=== PATIENT | male | born 1995 | race Caucasian/White ===

== ENCOUNTER 2018-09-12 13:58 | Emergency (ER) | payer OTHER, SELFPAY ==
[2018-09-12 13:58] VITALS: BP 144/101; PULSE 111; RESP 18; TEMP 36.7; O2SAT 99
--- NOTE | 2018-09-12 13:59 | PC.NURSE ---
JAI MOREJON at
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
--- NOTE | 2018-09-12 14:05 | PC.NURSE ---
rad at for portable xrays
[2018-09-12 14:06] VITALS: BMI 29.3
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
[2018-09-12 14:46] VITALS: BP 121/85; PULSE 100; O2SAT 98
[2018-09-12 15:05] VITALS: BP 156/84; PULSE 98; RESP 20; O2SAT 99
[2018-09-12 15:30] LABS: POC Glucose,Bedside 117 (70-110)
[2018-09-12 15:40] VITALS: BP 135/85; PULSE 92; O2SAT 96
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
[2018-09-12 16:07] VITALS: BP 135/85; PULSE 99; RESP 18; TEMP 37.2; O2SAT 99
== END 2018-09-12 16:08 | disposition home or self-care (01) ==
PROVIDERS: Emergency Provider Emergency Medicine; PCP Family Medicine
DX: Z04.1 Encounter for examination and observation following transport accident (principal); V43.52XA Car driver injured in collision with other type car in traffic accident, initial encounter; Y92.488 Other paved roadways as the place of occurrence of the external cause
CPT/HCPCS: 71045; 72170; 82962; 99281

== ENCOUNTER → 2019-09-30 12:28 | Outpatient (CLI) | payer BC, SELFPAY ==
[2019-10-01 13:30] LABS: Covid-19 Nasal PCR Sendout Lex NOT DETECTED
== END ==
PROVIDERS: PCP Family Medicine; Visit Provider Family Medicine
DX: Z03.818 Encounter for observation for suspected exposure to other biological agents ruled out (principal)
CPT/HCPCS: U0004

== ENCOUNTER 2021-03-31 12:28 | Emergency (ER) | payer BC, SELFPAY ==
[2021-03-31 12:58] VITALS: BP 141/97; PULSE 79; RESP 18; TEMP 37.1; O2SAT 97; BMI 29.1
--- NOTE | 2021-03-31 13:06 | HMH.EDUTC ---
[facility] [place] Clinical Impression: Finger laceration Qualifiers: Encounter type: initial encounter Finger: ring finger Damage to nail status: without damage Foreign body presence: without foreign body Laterality: right Qualified Code(s): S61.214A - Laceration without foreign body of right ring finger without damage to nail, initial encounter Disposition: Home, Self-Care Condition on Discharge: Good Instructions: DI for Laceration Repair-Skin Glue Additional Instructions: Keep area clean and dry and allow dermabond to wear off Do not soak hand in water Watch for signs of infection including but not limited too swelling, redness, drainage etc Return if needed Straight to ER if any life threatening symptoms Referrals: Taco Wilson [Primary Care Provider] - As needed Time of Disposition: 13:24 Medical Decision Making - Satnam Inquiry Pt receiving controlled substance: No Satnam was queried for this patient: No Vital Signs: 03/31/21 12:58 Temperature 98.7 F Temperature Source Oral Pulse Rate [Left] 79 Respiratory Rate 18 Blood Pressure [Right Arm] 141/97 H Blood Pressure Mean [Right Arm] 111 02 Sat by Pulse Oximetry 97 [facility] [place] - General Stated complaint: AO lacerated finger rt hand Time Seen by Provider: 03/31/21 13:07 Mode of Arrival: Ambulatory Source of Information: Patient Limitations: No Limitations Description of Symptoms (Recalled from Triage Doc. by RN): pt presents with a lac to his R ring finger. pt states he cut it on a piece of metal sticking out on his stove. HEENT Symptoms (Recalled from RN notes): No Resp Symptoms (Recalled from RN notes): No Skin Symptoms (Recalled from RN notes): Yes MS Symptoms (Recalled from RN notes): No Functional Status (Recalled from RN notes): wnl - History of Present Illness Provider Complaint: Patient states that he was putting a pizza in the oven at home and there was a piece of metal sticking down that cut his right ring finger State that he applied pressure and came in to get it checked out - Related Data Home Medications Medication Instructions Recorded Confirmed lisinopriL [Prinivil 5mg Tablet] 5 mg PO DAILY 09/12/18 09/12/18 Allergies Allergy/AdvReac Type Severity Reaction Status Date / Time No Known Allergies Allergy Verified 09/12/18 14:06 - Worker's Comp Is this a Worker's Comp case?: No [facility] History - Hepatitis A Screen Drug use history?: No High risk sexual behaviors?: No History of sexually transmitted infection?: No Currently employed?: No Childcare worker?: No Do you have indoor plumbing?: Yes Do you have electricity?: Yes Attestation statement:: This patient has been screened for Hepatitis A risk factors. I have reviewed the patient's past medical history: Yes Medical History: Denies:: Chronic Obstructive Pulmonary Disease (COPD) - Social History Smoking Status: Never smoker ROS Obtained: Yes All systems reviewed & no additional complaints, Yes Systems reviewed as appropriate & no additional complaints - Constitutional Constitutional: Reports system reviewed and no additional complaints, except as docu, Denies body ache, Denies chills, Denies fever(s) - ENT Ears, Nose, Mouth, and Throat: Reports system reviewed and no additional complaints, except as docu - Cardiovascular Cardiovascular: Reports system reviewed and no additional complaints, except as docu - Respiratory Respiratory: Reports system reviewed and no additional complaints, except as docu - Gastrointestinal Gastrointestingal: Reports: system reviewed and no additional complaints, except as docu - Musculoskeletal Musculoskeletal: Reports system reviewed and no additional complaints, except as docu - Integumentary/Breasts Skin/Breast: Reports system reviewed and no additional complaints, except as docu, Reports other Comments: laceration to right ring finger beside the fingernail Physical Exam - General General appearance: alert,
[2021-03-31 13:27] VITALS: BP 141/97; PULSE 79; RESP 18; TEMP 37.1
== END 2021-03-31 13:40 | disposition home or self-care (01) ==
PROVIDERS: Emergency Provider Nurse Practitioner; PCP Family Medicine
DX: S61.214A Laceration without foreign body of right ring finger without damage to nail, initial encounter (principal); W26.9XXA Contact with unspecified sharp object(s), initial encounter
CPT/HCPCS: 12001; 99202; G0463